=== PATIENT | male | born 1935 | race Caucasian/White ===

== ENCOUNTER → 2017-03-21 | Outpatient (CLI) | payer OTHER, BC ==
[~2017-03-21] VITALS: Ht 180.3 cm; Wt 111.1 kg
[~2017-03-21] MED LIST: COUMADIN 5 MG TA5 M1 PO; FOSINOPRIL SODI20 MG PO; LOPRESSOR100 M1 PO; METFORMIN HCL500 MG PO; MULTIVITAMINS PO; NEURONTIN 300300 M1 PO; TRIAMTERENE/HCT1 CA1 PO; WARFARIN SODIUM10 MG PO; ZOCOR20 MG PO
--- NOTE | ~2017-03-21 | S ---
[facility] [address] [place] [address] SURGICAL PATH RPT PROCEDURE Name: SHAJI AZEVEDO Maritza Room #: REG [facility]#: [id number] Admission: 03/21/17 Date of : 39 Discharge: Report #: [id number] Path Case #: [id number] PATHOLOGY REPORT COLLECTION DATE: 03/21/2017 RECEIVED DATE: 03/21/2017 SUBMITTING PHYS: Dr. Javier Pulliam OTHER PHYS: SPECIMEN(S) RECEIVED: A.GE junction B.Proximal transverse polyp x4 C.Polyp-cecum x2 D.Polyp-proximal ascending E.Polyp-distal ascending F.Mid transverse polyp G.Distal transverse polyp H.Polyp at spleenic flexure I.Polyp at 60 cm * * * * * * * * * * * * FINAL DIAGNOSIS: A. Gastroesophageal mucosa, GE junction, endoscopic biopsy: - Squamous mucosa showing mild increase in intraepithelial eosinophils upto 20/high power field, see comment. - Gastic cardia-type mucosa with moderate chronic inflammation. - Negative for intestinal metaplasia or dysplasia. B. Polyps x 4, proximal transverse polyp, endoscopic biopsy: - Tubular adenoma, multiple fragments. - Negative for high grade dysplasia C. Polyp x 2, cecum, endoscopic biopsy: - Tubular adenoma, multiple fragments. - Negative for high grade dysplasia D. Polyp, proximal ascending, endoscopic biopsy: - Hyperplastic polyp present in all fragments. - Negative for dysplasia. E. Polyp, distal ascending, endoscopic biopsy: - Tubular adenoma. - Negative for high grade dysplasia. F. Polyp, mid transverse polyp, endoscopic biopsy: - Tubular adenoma. - Negative for high grade dysplasia. G. Polyp, distal transverse polyp, endoscopic biopsy: - Tubular adenoma. - Negative for high grade dysplasia. H. Polyp, at spleenic flexure, endoscopic biopsy: - Tubular adenoma. [facility] [address] [address] SURGICAL PATH RPT PROCEDURE Name: SHAJI AZEVEDO Room #: REG [facility] [place]#: [id number] Admission: 03/21/17 Date of : 39 Discharge: Report #: [id number] Path Case #: [id number] - Negative for high grade dysplasia. I. Polyp, at 60 cm, endoscopic biopsy: - Tubular adenoma. - Negative for high grade dysplasia. COMMENT: Examination of the esophageal biopsy tissue shows squamous mucosa with a marked number of intraepithelial eosinophils. Although eosinophils are commonly encountered in inflammation due to reflux esophagitis, the eosinophils in the present specimen are numerous, exceeding 20/hpf. Apart from reflux esophagitis, potential etiologies for the histologic pattern include allergic and collagen vascular diseases, fungal or parasitic infections, and eosinophilic esophagitis (idiopathic). Please correlate with clinical and endoscopic findings. (IUV; 03/25/17) PATHOLOGIST: Carissa Silva M.D. REPORT ELECTRONICALLY SIGNED BY: Carissa Silva M.D. DATE/TIME: 03/25/2017 16:44 * * * * * * * * * * * * GROSS PATHOLOGY: A. Received in formalin labeled "Shaji Azevedo, GE junction," are 6 segments of frances soft tissue measuring 2.4 x 0.2 x 0.2 cm in aggregate dimensions and ranging from 0.3 to 0.5 cm in maximum dimension. The specimen is submitted entirely in cassette A1. B. Received in formalin labeled "Shaji Azevedo, polyp 4 proximal transverse," are 7 segments of frances soft tissue measuring 2.4 x 0.2 x 0.2 cm in aggregate dimensions and ranging from 0.2 to 0.5 cm in maximum dimension. The specimen is submitted entirely in cassette B1. C. Received in formalin labeled "Shaji Azevedo, polyps 2 cecum," are 9 segments of frances soft tissue measuring 2.9 x 0.2 x 0.2 cm in aggregate dimensions and ranging from 0.1 to 0.5 cm in maximum dimension. The specimen is submitted entirely in cassette C1. D. Received in formalin labeled "Shaji Azevedo, polyp proximal ascending," are 7 segments of frances to yellow to brown soft tissue measuring 2.4 x 0.2 x 0.2 cm in aggregate dimensions and ranging from 0.1 to 0.5 cm in maximum dimension. The specimen is submitted entirely in cassette D1. E. Received in formalin labeled "Shaji Azevedo, polyp distal ascending," are more than 10 segments of frances soft tissue measuring 2.0 x 0.9 x 0.3 cm in aggregate dimensions and ranging from 0.1 to 0.8 cm in maximum dimension. The specimen is submitted entirely in cassette E1. F. Received in formalin labeled "Shaji Azevedo, mid transverse [address] [address] SURGICAL PATH RPT PROCEDURE Name: SHAJI AZEVEDO Room #: REG [facility]#: [id number] Admission: 03/21/17 Date of : 39 Discharge: Report #: [id number] Path Case #: [id number] polyp," are more than 10 segments of frances to brown soft tissue measuring 2.2 x 0.7 x 0.3 cm in aggregate dimensions and ranging from less than 0.1 to 0.5 cm in maximum dimension. The specimen is submitted entirely in cassette F1. G. Received in formalin labeled "Shaji Azevedo, polyp at distal transverse," are more than 10 segments of frances soft tissue measuring 1.3 x 0.7 x 0.2 cm in aggregate dimensions and ranging from less than 0.1 to 0.7 cm in maximum dimension. Note the smaller segments of frances soft tissue may not survive processing. The specimen is submitted entirely in cassette G1. H. Received in formalin labeled "Shaji Azevedo, polyp at splenic flexure," are 2 segments of frances soft tissue measuring 1.0 x 0.3 x 0.2 cm in aggregate dimensions and ranging from 0.4 to 0.6 cm in maximum dimension. The specimen is submitted entirely in cassette H1. I. Received in formalin labeled "Shaji Azevedo, polyp at 60 cm," are 4 segments of frances soft tissue measuring 1.5 x 0.2 x 0.2 cm in aggregate dimensions and ranging from 0.3 to 0.5 cm in maximum dimension. The specimen is submitted entirely in cassette I1. (TRACIE; 03/22/2017) CLINICAL HISTORY: Fernandez's esophagus, history colon polyps INITIAL CPT CODE(S): A; 66594 B; 07022 C; 88375 D; 92641 E; 67278 F; 43238 G; 86578 H; 07533 I; 83765 Professional services performed by [facility] at [facility] [address], [place] [address] Technical services performed by [facility] at [address] [place] [address], [address], [place] [address]. [facility] [address] [place] [address] PHONE: [phone] DIRECTOR: Evgeny Salas M.D. [place] [address] [place] [address] SURGICAL PATH RPT PROCEDURE Name: SHAJI AZEVEDO Room #: REG [facility]#: [id number] Admission: 03/21/17 Date of : 39 Discharge: Report #: [id number] Path Case #: [id number] * * * END OF REPORT * * *
--- NOTE | ~2017-03-21 | EKG ---
[address] [address] ELECTROCARDIOGRAM REPORT Name: CHA MALDONADO [facility] [id number] Admission: 03/21/17 Attend Phys: Javier Pulliam MD Discharge: Date of : 39 Report #: [id number] THIS REPORT FOR: //name// [facility] Test Date: 2017-03-21 Test Time: 09:26:14 Pat Name: CHA MALDONADO Department: Room: Gender: [employer] Bluer: Grecia AWAD : 1935 Requested By: Javier Pulliam Order Number: [id number] MD: Dc Oconnor Measurements Intervals [place] Rate: 58 P: OK: QRS: 24 QRSD: 95 T: 31 QT: 471 QTc: 463 Interpretive Statements Atrial fibrillation No previous ECG available for comparison Electronically Signed On 03-22-2017 13:50:20 CDT by Dc Oconnor [email or web address] <ELECTRONICALLY SIGNED> By: Dc Oconnor MD 03/22/17 1350 0926 5 MD YOLI Rich
[2017-03-21 09:32] LABS: INR 1.1; PROTIME 11.6 Seconds (9.3-11.4)
== END | disposition home or self-care (01) ==
LOC: GI 08:30
PROVIDERS: Specialist
DX: Z09 Encounter for follow-up examination after completed treatment for conditions other than malignant neoplasm (principal); D12.0 Benign neoplasm of cecum; D12.4 Benign neoplasm of descending colon; D12.3 Benign neoplasm of transverse colon; K57.30 Diverticulosis of large intestine without perforation or abscess without bleeding; K64.8 Other hemorrhoids; K29.70 Gastritis, unspecified, without bleeding; K44.9 Diaphragmatic hernia without obstruction or gangrene; K63.5 Polyp of colon; I10 Essential (primary) hypertension; E11.9 Type 2 diabetes mellitus without complications; I25.10 Atherosclerotic heart disease of native coronary artery without angina pectoris; E78.00 Pure hypercholesterolemia, unspecified; G47.33 Obstructive sleep apnea (adult) (pediatric); Z98.890 Other specified postprocedural states; Z79.899 Other long term (current) drug therapy; Z87.891 Personal history of nicotine dependence; Z95.5 Presence of coronary angioplasty implant and graft
CPT/HCPCS: 62110; 62900

== ENCOUNTER → 2018-04-10 | Outpatient (CLI) | payer OTHER, BC ==
[~2018-04-10] VITALS: Ht 177.8 cm; Wt 113.4 kg
--- NOTE | ~2018-04-10 | PATH ---
[facility] [place] [address] PATHOLOGY RPT PROCEDURE Name: AZEVEDOSHAJI Room #: REG JENN Montes.#: [id number] Admission: 04/10/18 Date of : 39 Discharge: Report #: [id number] Path Case #: [id number] [facility] Accession Number: [id number] . 01 Material submitted: . PART A: PROXIMAL TRANSVERSE COLON POLYP BX PART B: CECAL POLYP X2 BX PART C: HEPATIC FLEXURE POLYP X2 BX PART D: SPLENIC FLEXURE POLYP BX . 01 Clinical history: . Pre-op diagnosis: History of colon polyps Post-op diagnosis: Colon polyps . 02 Diagnosis: A. Polyp, proximal transverse colon polyp, endoscopic biopsy: - Tubular adenoma. - Negative for high-grade dysplasia. . B. Polyp x 2, cecal polyp, endoscopic biopsy: - Multiple fragments showing changes compatible with a hyperplastic polyp. - Negative for dysplasia. . C. Polyp x 2, hepatic flexure, endoscopic biopsy: - Hyperplastic polyp x multiple fragments. - Negative for dysplasia. . D. Polyp, splenic flexure, endoscopic biopsy: - Hyperplastic polyp. - Negative for dysplasia. (IUV:maría; 04/14/2018) QMS/04/14/2018 . 02 Electronically signed: . Carissa Silva MD, Pathologist NPI- [id number] . 01 Gross description: . A. The specimen is received in formalin, labeled "Shaji Azevedo, proximal transverse colon polyp biopsy". Received are two segments of pale frances soft tissue measuring 0.4 and 0.5 cm in maximum dimensions. The specimen is submitted entirely in cassette A1. . B. The specimen is received in formalin, labeled "Shaji Azevedo, cecal polyp biopsy x2". Received are two segments of pale frances soft tissue measuring 0.3 and 0.8 cm in maximum dimensions. The specimen is submitted entirely [place] [address] PATHOLOGY RPT PROCEDURE Name: SAMI AZEVEDOBESS Salas [facility] [id number] Admission: 04/10/18 Date of : 39 Discharge: Report #: [id number] Path Case #: [id number] . C. The specimen is received in formalin, labeled "Shaji Azevedo, hepatic flexure polyp biopsy x2". Received are two segments of pale frances soft tissue measuring 0.5 cm each in maximum dimensions. The specimen is submitted entirely in cassette C1. . D. The specimen is received in formalin, labeled "Shaji Azevedo, splenic flexure polyp biopsy". Received is a segment of pale frances soft tissue measuring 0.5 cm in maximum dimensions. The specimen is submitted entirely in cassette D1. (CAA; 04/11/2018) QAC/QAC . 02 Pathologist provided ICD-10: D12.3, K63.5, Z86.010 . 02 CPT . 844047, 363879, 100783, 926606 Performed at: [address], [place] [id number] MD Lele Pina MD Phone: [phone] Performed at: [address] [id number] MD Carissa Silva MD Phone: [phone]
--- NOTE | ~2018-04-10 | P ---
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 POSTOPERATIVE DIAGNOSES: 1. Multiple colon polyps. 2. Sigmoid diverticular disease. MEDICATIONS: Deep sedation with propofol per Anesthesia. SPECIMENS: 1. Diminutive polyp, proximal transverse colon. 2. Diminutive cecal polyps x 2. 3. Hepatic flexure polyps x 2. 4. Splenic flexure polyp. ESTIMATED BLOOD LOSS: 3 mL. PROCEDURE: Colonoscopy to cecum and terminal ileum, biopsy. FINDINGS: Prior to propofol sedation, procedure of colonoscopy was reviewed with the patient as well as potential risks and its complications. He indicates he understands and desires to proceed. DESCRIPTION OF PROCEDURE: With the patient in left lateral decubitus position, digital rectal exam was completed which revealed no abnormalities. Subsequently, the EagerPanda video colonoscope was introduced into the rectum, advanced under direct vision to the cecum. Done with minimal difficulty. The cecum was identified by the ileocecal valve and the appendiceal orifice. I was able to visualize the distal segment of the terminal ileum, which was inspected and noted to be unremarkable. At that point, scope was withdrawn and careful circumferential views were obtained. Examination of the colon revealed multiple diminutive polyps. Two diminutive polyp seen, removed by biopsy forceps from the cecum. Two were also removed from the hepatic flexure with biopsy forceps. One was removed from the proximal transverse colon with biopsy forceps and one from the splenic flexure. Distal to the splenic flexure, no polyps were seen. The scope was withdrawn in the rectum and upon retroflexion, no abnormalities were seen. Scope was withdrawn. The patient tolerated the procedure well. CONDITION OF THE PATIENT UPON DISCHARGE: Following procedure, the patient drowsy, aroused and conversant and will be discharged home when fully [address] [address] PROCEDURE REPORT Name: CHA MALDONADO Room #: REG [facility] [place]#: [id number] Admission: 04/10/18 Attend Phys: Javier Pulliam MD Discharge: Date of : 39 Report #: [id number] ambulatory. INSTRUCTIONS TO THE PATIENT AND FAMILY AT THE TIME OF DISCHARGE: Six polyps removed today. We will follow up on the path report. He should return for a followup in 1-2 years due to his history of colon polyps. I see in notes from the past that we talked about genetic counseling, I am not sure that was done. We will discuss further with the patient. If not previously done, genetic counseling certainly may be of benefit for the patient and his family. Due to his high polyp count, I wonder if he would have attenuated familial adenomatous polyposis. <ELECTRONICALLY SIGNED> By: Javier Pulliam MD 04/11/18 1645 1021 1102 Javier Pulliam MD /nt
== END | disposition home or self-care (01) ==
LOC: GI 08:42
DX: Z12.11 Encounter for screening for malignant neoplasm of colon (principal); D12.3 Benign neoplasm of transverse colon; K63.5 Polyp of colon; K57.30 Diverticulosis of large intestine without perforation or abscess without bleeding; Z86.010 Personal history of colon polyps; Z95.5 Presence of coronary angioplasty implant and graft; I10 Essential (primary) hypertension; E78.00 Pure hypercholesterolemia, unspecified; G47.30 Sleep apnea, unspecified; Z98.890 Other specified postprocedural states; E11.9 Type 2 diabetes mellitus without complications; Z87.891 Personal history of nicotine dependence; I20.9 Angina pectoris, unspecified
CPT/HCPCS: 62110; 62900